=== PATIENT | male | born 1990 | race Caucasian/White ===

== ENCOUNTER 2023-06-07 13:44 | Inpatient (IN) | payer OTHER ==
[2023-06-07] MEDS ORDERED: IBUPROFEN 600 MG TABLET (FP) PO PRN (15:06)
[2023-06-07] MEDS ORDERED: NALOXONE HCL (KLOXXADO) 8 MG SPRAY NS PRN (15:06)
[2023-06-07] MEDS ORDERED: guaiFENesin 600 MG TABLET.ER (FP) PO PRN (15:06)
[2023-06-07] MEDS ORDERED: BENZONATATE 200 MG CAPSULE PO PRN (15:06)
[2023-06-07] MEDS ORDERED: BENZOCAINE/MENTHOL (CHLORASEPTIC ) LOZENGE MM PRN (15:06)
[2023-06-07] MEDS ORDERED: POLYETHYLENE GLYCOL (HEALTHYLAX) 3350 17 GM PACKET PO PRN (15:06)
[2023-06-07] MEDS ORDERED: MAGNESIUM HYDROX 2400MG/30ML ORAL SUSPENSION 30 ML CUP PO PRN (15:06)
[2023-06-07] MEDS ORDERED: NALOXONE HCL 0.4 MG/ML VIAL IM PRN (15:06)
[2023-06-07] MEDS ORDERED: IBUPROFEN 400 MG TABLET (FP) PO PRN (15:06)
[2023-06-07] MEDS ORDERED: BUPRENORPHINE HCL 150 MCG, BUPRENORPHINE HCL 75 MCG BC PRN (15:06)
[2023-06-07] MEDS ORDERED: MAG HYDROX/AL HYDROX/SIMETH 30 ML UNIT-DOSE CUP PO PRN (15:06)
[2023-06-07] MEDS ORDERED: BISMUTH SUBSALICYLATE 524 MG/30 ML PO PRN (15:06)
[2023-06-07] MEDS ORDERED: BUPRENORPHINE HCL 150 MCG FILM BC ONE (15:35)
[2023-06-07] MEDS ORDERED: BUPRENORPHINE HCL 75 MCG FILM BC ONE (15:36)
[2023-06-07] MEDS: BUPRENORPHINE HCL 150 MCG, BUPRENORPHINE HCL 75 MCG BC ONE (15:38)
[2023-06-07 16:12] VITALS: BMI 20.7
[2023-06-07] MEDS: cloNIDine HCL 0.1 MG TABLET PO ONE (16:29)
[2023-06-07] MEDS: NICOTINE 7 MG/24 HOURS TOPICAL PATCH TD SCH (16:30)
[2023-06-07] MEDS: PRENATAL VITAMINS W/ FOLIC ACID TABLET (FP) PO SCH (16:31)
[2023-06-07] MEDS: ACETAMINOPHEN 325 MG TABLET (FP) PO PRN (18:19)
[2023-06-07] MEDS: DICYCLOMINE HCL 10 MG CAPSULE PO PRN (18:20)
[2023-06-07] MEDS: METHOCARBAMOL 500 MG TABLET PO PRN (19:49)
[2023-06-07] MEDS: hydrOXYzine PAMOATE 25 MG CAPSULE (FP) PO PRN (19:49)
[2023-06-07] MEDS: ONDANSETRON *ODT* 4 MG TABLET SL PRN (21:40)
[2023-06-07] MEDS: THIAMINE HCL 100 MG TABLET (FP) PO SCH (22:30)
[2023-06-07] MEDS: MELATONIN 5 MG TABLETS PO SCH (22:30)
[2023-06-07] MEDS: diazePAM 5 MG TABLET PO PRN (22:32)
[2023-06-08] MEDS: BUPRENORPHINE HCL 150 MCG, BUPRENORPHINE HCL 75 MCG BC SCH (05:22)
[2023-06-08] MEDS: BUPRENORPHINE HCL 150 MCG, BUPRENORPHINE HCL 75 MCG BC PRN (10:57)
[2023-06-08] MEDS: TRIMETHOBENZAMIDE HCL 200MG/2ML INJ IM ONE (18:55)
[2023-06-08] MEDS: methaDONE HCL 10 MG TABLET (FOR DETOX USE ONLY) PO ONE (18:55)
[2023-06-08] MEDS ORDERED: MELATONIN 5 MG TABLETS PO SCH (22:00)
[2023-06-08] MEDS: QUEtiapine FUMARATE 100 MG TABLET (FP) PO SCH (22:12)
[2023-06-09] MEDS ORDERED: BUPRENORPHINE HCL 450 MCG FILM BC SCH (06:00)
[2023-06-09 10:05] VITALS: RESP 16
[2023-06-09] MEDS: cloNIDine HCL 0.1 MG TABLET PO PRN (14:09)
[2023-06-09 17:46] VITALS: BP 102/59; PULSE 88; TEMP 97.1
[2023-06-09] MEDS: LOPERAMIDE HCL 2 MG CAPSULE PO PRN (18:15)
[2023-06-10] MEDS ORDERED: BUPRENORPHINE/NALOXONE 4 MG/1 MG FILM PACKET SL SCH (06:00)
[2023-06-10] MEDS ORDERED: methaDONE HCL 10 MG TABLET (FOR DETOX USE ONLY) PO ONE (10:00)
[2023-06-11] MEDS ORDERED: BUPRENORPHINE/NALOXONE 8 MG/2 MG FILM PACKET SL ONE (06:00)
[2023-06-12] MEDS ORDERED: methaDONE HCL 10 MG TABLET (FOR DETOX USE ONLY) PO ONE (10:00)
== END 2023-06-09 19:50 | disposition left against medical advice (07) | DRG 770 ==
LOC: YASAS 13:44 → Y6N 15:51
PROVIDERS: ADMIT Allergy & Immunology; ATTEND Surgery
PROC: HZ2ZZZZ Detoxification Services for Substance Abuse Treatment (ICD-10-PCS; principal; 2023-06-07)
DX: F11.23 Opioid dependence with withdrawal (principal); F14.20 Cocaine dependence, uncomplicated; F17.210 Nicotine dependence, cigarettes, uncomplicated; F19.280 Other psychoactive substance dependence with psychoactive substance-induced anxiety disorder; F19.282 Other psychoactive substance dependence with psychoactive substance-induced sleep disorder; F31.9 Bipolar disorder, unspecified; F90.9 Attention-deficit hyperactivity disorder, unspecified type; Z62.810 Personal history of physical and sexual abuse in childhood; Z63.8 Other specified problems related to primary support group; Z56.0 Unemployment, unspecified; Z59.01 Sheltered homelessness
CPT/HCPCS: 80305; 87635; 93005; 93010; Q0162